=== PATIENT | male | born 1985 | race Two or more races ===

== ENCOUNTER 2020-08-28 04:20 | Emergency (ER) | payer MEDICAID, OTHER ==
[~2020-08-28] VITALS: Ht 177.8 cm; Wt 113.4 kg
[2020-08-28 07:19] VITALS: BP 136/83
== END 2020-08-28 07:25 | disposition home or self-care (01) ==
LOC: ER 04:20
DX: S00.83XA Contusion of other part of head, initial encounter (principal); S40.011A Contusion of right shoulder, initial encounter; S70.12XA Contusion of left thigh, initial encounter; R07.9 Chest pain, unspecified; F17.210 Nicotine dependence, cigarettes, uncomplicated; F12.10 Cannabis abuse, uncomplicated; V43.52XA Car driver injured in collision with other type car in traffic accident, initial encounter; Y93.89 Activity, other specified; Y92.89 Other specified places as the place of occurrence of the external cause; Y99.8 Other external cause status
CPT/HCPCS: 70450; 71045; 72125; 72170; 73030; 73552; 99285; J7030